=== PATIENT | male | born 1960 | race Caucasian/White ===

== ENCOUNTER 2021-02-12 03:14 | Outpatient (CLI) | payer BC, SELFPAY ==
[2021-02-12 11:40] LABS: Source Nasal/Nares
[2021-02-12 15:14] LABS: COVID-19 PCR Negative (Negative)
== END 2021-02-12 03:15 | disposition home or self-care (01) ==
LOC: LBO 03:14
PROVIDERS: PCP Family Medicine; Visit Provider Urology
DX: Z20.822 Contact with and (suspected) exposure to COVID-19 (principal); Z01.818 Encounter for other preprocedural examination
CPT/HCPCS: 87635

== ENCOUNTER 2021-02-15 07:04 | Day surgery (SDC) | payer BC, SELFPAY ==
[2021-02-15 07:14] VITALS: BP 143/96; PULSE 78; RESP 16; TEMP 37; O2SAT 99
[2021-02-15] MEDS: Lactated Ringers 1,000 ML 80 ML IV (07:47)
--- NOTE | 2021-02-15 09:10 | HPE_ITS ---
Date of service: 02/15/21 Time of Service: 09:10 Assessment and Plan Assessment and plan (1) Gross hematuria: Status: Acute Assessment and plan: We will plan a cystoscopy to complete his hematuria workup. Based on our findings, we will be prepared to perform TURBT or biopsy and fulguration. History of Present Illness History of Present Illness Chief Complaint: Hematuria Narrative: This is a 61-year-old gentleman who is referred by Dr. Salas. The patient noticed abena ss blood at the beginning of his urinary stream about 2 weeks ago. The end of the urinary stream appeared yellow and clear. He did not have any discomfort when voiding. He did not see any clots in the urine. About a month prior to this incident, he had a urinalysis that was completely normal. He has never been a smoker. He has no prior history of urinary tract infections or STDs. He has not had any previous urologic surgeries. He did have a urethral catheter in place over 40 years ago when he underwent surgery for his right hand. He has no known bleeding disorders. He has seen blood in the semen previously. He has been evaluated with a CT urogram at [facility]. No hydronephrosis, renal mass or stones were identified. Review of Systems Narrative: No fevers or chills No vision change or dysphasia No diabetes or thyroid dysfunction No shortness of breath, cough or hemoptysis No chest pain or palpitations No nausea, vomiting, hepatitis, ulcers, jaundice, diarrhea or constipation No seizures, strokes or peripheral neuropathy No bleeding disorders or anemia Chronic back pain. Hx hand reattachment surgery. No gout PFSH Medical History Benign essential HTN Complication of reattached right hand Erectile dysfunction Hematospermia Hematuria HSV infection Serrated adenoma of colon Tinnitus Trauma Varicose vein of leg Surgical History H/O hand surgery Social History Smoking/Tobacco Use Status: Never Smoking risk assessment performed?: Yes Alcohol Intake: current Alcohol Intake frequency: holidays/special occasions only Substance use type: does not use Do you feel safe at home: Yes Meds Allergies and Home Medications Allergies Allergy/AdvReac Type Severity Reaction Status Date / Time No Known Allergies Allergy Unverified 02/15/21 07:13 Home Medications Medication Instructions Recorded Confirmed Type fosinopril 20 mg tablet 20 mg PO DAILY 12/28/20 02/15/21 History glucosamine sulfate 500 mg capsule 500 mg PO DAILY 12/28/20 02/15/21 History hydrochlorothiazide 25 mg tablet 25 mg PO DAILY 12/28/20 02/15/21 History multivitamin 1 tab PO DAILY 12/28/20 02/15/21 History sildenafil 100 mg tablet 100 mg PO DAILY PRN 12/28/20 02/15/21 History Exam Const General: cooperative and comfortable Neck Neck: supple Resp Effort & Inspection: normal respiratory effort Auscultation: clear to auscultation bilaterally Cardio Rate: regular rate Rhythm: regular rhythm GI Palpation: soft and no masses Neuro General: patient alert, patient awake and patient oriented x3 Results Last Vital Signs Temp 37 C 02/15/21 07:14 Pulse 78 02/15/21 07:14 Resp 16 02/15/21 07:14 BP 143/96 H 02/15/21 07:14 Pulse Ox 99 02/15/21 07:14
--- NOTE | 2021-02-15 09:30 | W.ANESPRE ---
General Info Date of Service Date Performed: 02/15/21 Height: 6 ft Weight: 92.4 kg Body Mass Index (BMI): 27.6 Surgical Procedure: Operation Date: 02/15/21 09:10 Proposed Procedures Side Surgeon p CYSTO, POSSIBLE Transurethral Resection Bladder Tumor Andrea Carlson MD Meds Allergies and Home Medications Allergies Allergy/AdvReac Type Severity Reaction Status Date / Time No Known Allergies Allergy Unverified 02/15/21 07:13 Home Medication Medication Instructions Recorded fosinopril 20 mg tablet 20 mg PO DAILY 12/28/20 glucosamine sulfate 500 mg capsule 500 mg PO DAILY 12/28/20 hydrochlorothiazide 25 mg tablet 25 mg PO DAILY 12/28/20 multivitamin 1 tab PO DAILY 12/28/20 sildenafil 100 mg tablet 100 mg PO DAILY PRN 12/28/20 Current Visit Medications: Current Medications Generic Name Dose Route Start Last Admin Trade Name Freq PRN Reason Stop Dose Admin Ringer's Solution 1,000 mls @ 80 mls/hr 02/15/21 06:00 02/15/21 07:47 IV 03/14/21 23:59 80 mls/hr INFUSION MERRY Administration Cefazolin Sodium/Dextrose 1 gm in 50 mls @ 100 mls/hr 02/15/21 06:00 Ancef Duplex IVPB 02/15/21 16:00 PREOP MERRY IV Miscellaneous Supplies 1 each 02/15/21 06:00 Iv Access IV 03/14/21 23:59 DIRECTED MERRY Sodium Chloride 0 ml 02/15/21 06:00 Normal Saline Flush 10 Ml Syr IV 03/14/21 23:59 PRN PRN Sodium Chloride 0 ml 02/15/21 06:00 Normal Saline 10 Ml Vial IJ 03/14/21 23:59 DIRECTED PRN Sterile Water 0 ml 02/15/21 06:00 Water,Injection,Sterile 10 Ml Vial IJ 03/14/21 23:59 DIRECTED PRN PFSH Active Problems Active Problems: Problem Status Onset Code Gross hematuria R31.0 Medical History Medical History Benign essential HTN Complication of reattached right hand Erectile dysfunction Hematospermia Hematuria HSV infection Serrated adenoma of colon Tinnitus Trauma Varicose vein of leg Surgical History Surgical History H/O hand surgery Tobacco Smoking/Tobacco Use Status: Never Alcohol Alcohol Intake: current Alcohol intake frequency: holidays/special occasions only Substance Use Substance use type: does not use Vital Signs and Lab Results Vital Signs Most Recent Vital Signs in EMR: Most Recent Vital Signs Temp Pulse Resp BP Pulse Ox 37 C 78 16 143/96 H 99 02/15/21 07:14 02/15/21 07:14 02/15/21 07:14 02/15/21 07:14 02/15/21 07:14 Lab Results Blood Type / Crossmatch: No Data to Display Complete Blood Count: No Data to Display Complete Metabolic Panel: No Data to Display Liver Function Panel: No Data to Display Coagulation Panel: No Data to Display Cardiac Panel: No Data to Display Arterial Blood Gas: No Data to Display Venous Blood Gas: No Data to Display Pancreas Panel: No Data to Display Thyroid Panel: No Data to Display Infectious Disease: Coronavirus (COVID-19)(PCR) Negative (Negative) 02/12/21 08:45 02/12/21 Coronavirus 2019 Source Nasal/Nares 02/12/21 08:45 02/12/21 Blood Cultures: No Data to Display Toxicology Panel: No Data to Display Anesthesia Assessment and Plan Anesthesia History Personal History: No History of Anesthesia Complications Family History: No Family History of Anesthesia Complications Exercise Tolerance Exercise Tolerance: Metabolic Equivalents<4 Pertinent Negatives Pertinent Negatives: No Symptoms of GERD, No Major Cardiovascular Symptoms or Complaints, No Major Pulmonary Symptoms or Complaints and No History of CVA/TIA Cardiac & Pulmonary Exam Cardiac Exam: Normal S1/S2 Heart Sounds Pulmonary Exam: Clear Bilateral Breath Sounds Airway Exam Known Difficult Airway: No Mallampati Class: 3 Mouth Opening: Normal (> 3cm) Thyromental Distance: Greater than 3 cm Neck Range of Motion: Full ROM Neck Circumference: Normal Teeth Condition: Normal Dentition ASA Classification ASA Score: ASA 2 Emergency Case?: No NPO Status NPO Status: NPO Clears >2 hours, Solids >8 hours Anesthesia Plan Resuscitation Status: Full Code Anesthesia Technique: MAC Anesthesia Airway Planned: Natural Airway Monitors Used: Standard Monitors
[2021-02-15] MEDS: ceFAZolin 1 GM/50 ML BAG IVPB (09:48)
[2021-02-15] MEDS: Lidocaine 2% Jelly 6 ML SYR (10:01)
--- NOTE | 2021-02-15 10:07 | W.PM.DSUDISC ---
Discharge Plan Disposition Patient Disposition: HOME Condition: Stable Discharge Details Reason For Visit: cystoscopy Attending Provider: Andrea Carlson Primary Care Provider: Juaquin Salas Home Meds and New Rx's Prescriptions: No Action multivitamin Tablet 1 tab PO DAILY RF: 0 glucosamine sulfate 500 mg capsule 500 mg PO DAILY RF: 0 fosinopril 20 mg tablet 20 mg PO DAILY RF: 0 hydrochlorothiazide 25 mg tablet 25 mg PO DAILY RF: 0 sildenafil [Viagra] 100 mg tablet 100 mg PO DAILY PRNRF: 0 Discharge Instructions Additional Instructions: followup yearly for urinalysis (can be with me or with PCP) Activity:: Activity as Tolerated Shower/Bathe:: 24 hours Diet:: As Tolerated Discharge Orders Discharge Orders: Discharge Order (Routine); Ordered 02/15/21 Ordered By: Andrea Carlson DS: Diagnosis Discharge Diagnosis (1) Gross hematuria: Status: Acute
[2021-02-15 10:12] VITALS: BMI 27.6
--- NOTE | 2021-02-15 10:13 | ROE_ITS ---
Date of service: 02/15/21 Time of Service: 10:13 Operative Note Operative Note DATE OF PROCEDURE: 02/15/21 PRE-OP DIAGNOSIS: hematuria POST-OP DIAGNOSIS: same PROCEDURE: cystoscopy SURGEON: Andrea Carlson ANESTHESIA TYPE: Local By Surgeon and General:No Airway Refer to Anesthesia Record ESTIMATED BLOOD LOSS: 0 PATHOLOGY: none sent COMPLICATIONS: None Patient was transported to: same day Patient's condition: stable Indications: Is a 61-year-old gentleman who noticed gross painless hematuria at the beginning of his urinary stream. He has been evaluated with a CT urogram which showed no stones, no renal masses and no hydronephrosis. He presents now for cystoscopy to complete his hematuria work-up Findings: Edematous mucosa in urethra Procedure Description: Patient was given preoperative antibiotics. He was brought to the operating room on 02/15/2021. After successful induction of general anesthesia without intubation, he was placed in the dorsal lithotomy position. His genitalia was prepped and draped. 2% Xylocaine jelly was instilled into the urethra to act as a local anesthetic. A 17 Swedish rigid cystoscope was then passed through the urethra into the bladder. The urethra and bladder were inspected with a 30 degree lens. The pe ndulous bulbar urethra appeared normal. Toward the membranous urethra, we identified some whitish mucosa suggestive of scar tissue. Just proximal to this whitish mucosa, the mucosa appeared more erythematous. No papillary or nodular lesions were seen. The prostatic urethra showed lateral lobe enlargement but no papillary or nodular mucosal-based lesions. The bladder neck was entered and the bladder mucosa was inspected. Both ureteral orifices appeared normal with no blood seen coming from either side. No bladder lesions were seen. These findings were confirmed on reinspection of the bladder using a 70 degree lens. Based on today's examination, I find no significant lower urinary tract pathology. The scope was removed. And tolerated this procedure well.
[2021-02-15 10:20] VITALS: BP 100/66; PULSE 72; RESP 16; TEMP 36.6; O2SAT 95
--- NOTE | 2021-02-15 10:24 | W.ANESPOSTOP ---
Postoperative Evaluation Date, Time and Location Date Performed: 02/15/21 Time Performed: 10:24 Patient Location: Day Surgery Unit Vital Signs Most Recent Imported Vital Signs: Most Recent Vital Signs Temp Pulse Resp BP Pulse Ox 37 C 78 16 143/96 H 99 02/15/21 07:14 02/15/21 07:14 02/15/21 07:14 02/15/21 07:14 02/15/21 07:14 Most Recent Manually Entered Vital Signs: Adult Blood Pressure: 100/66 Heart Rate: 74 Respirations: 14 Oxygen Saturation (%): 96 Temperature (C): 36.6 C Pain Score (0-10 Scale): 0 Assessment Mental Status: Awake (Alert & Oriented to Patient Baseline) Airway and Respiratory Function: Patent airway with normal (patient baseline) respiratory exam Cardiovascular Function: Hemodynamically Stable Hydration Status: Adequately Hydrated Nausea & Vomiting: No Nausea or Vomiting Pain: Pt. Denies Any Pain Peripheral Nerve Block: Patient did not receive a nerve block
[2021-02-15 10:25] VITALS: BP 100/66; PULSE 74; RESP 14; TEMPC 36.6; O2SAT 96
[2021-02-15 10:53] VITALS: BP 132/81; PULSE 74; RESP 16; TEMP 36.4; O2SAT 93
[2021-02-15] MEDS: Phenazopyridine 200 MG TAB PO (10:54)
== END 2021-02-15 11:25 | disposition home or self-care (01) ==
PROVIDERS: PCP Family Medicine; Visit Provider Urology
PROC: 0TBB8ZZ Excision of Bladder, Via Natural or Artificial Opening Endoscopic (ICD-10-PCS; CPT 52000; principal; 2021-02-15 09:00)
DX: R31.0 Gross hematuria (principal); I10 Essential (primary) hypertension
CPT/HCPCS: 52000; J0690; J1100; J2001; J2405

== ENCOUNTER 2021-11-30 15:24 | Outpatient (REF) | payer BC, SELFPAY ==
[2021-11-30 18:09] LABS: PSA, Diagnostic 0.6 ng/mL (<=3.5)
== END 2021-11-30 15:25 | disposition home or self-care (01) ==
LOC: LBN 15:24
PROVIDERS: PCP Family Medicine; Visit Provider Urology
DX: R31.0 Gross hematuria (principal); R36.1 Hematospermia
CPT/HCPCS: 84153

== ENCOUNTER 2022-11-25 01:31 | Outpatient (CLI) | payer BC, SELFPAY ==
[2022-11-25 20:25] LABS: PSA, Screening 0.4 ng/mL (<=4.5)
== END 2022-11-25 01:32 | disposition home or self-care (01) ==
LOC: LBO 01:31
PROVIDERS: Urology; PCP Family Medicine; Visit Provider Nurse Practitioner Gerontology
DX: R31.0 Gross hematuria (principal); N52.9 Male erectile dysfunction, unspecified; R36.1 Hematospermia; Z12.5 Encounter for screening for malignant neoplasm of prostate
CPT/HCPCS: 36415; 84153

== ENCOUNTER 2023-08-11 01:48 | Outpatient (CLI) | payer BC, SELFPAY ==
[2023-08-11 18:12] LABS: PSA, Diagnostic 0.8 ng/mL (<=4.5)
== END 2023-08-11 01:49 | disposition home or self-care (01) ==
PROVIDERS: PCP Family Medicine; Visit Provider Urology
DX: R36.1 Hematospermia (principal)
CPT/HCPCS: 36415; 84153